=== PATIENT | female | born 1965 | race Caucasian/White ===

== ENCOUNTER 2017-12-28 12:17 | Emergency (ER) | payer MEDICARE ==
[~2017-12-28] VITALS: Ht 154.9 cm; Wt 66.0 kg
[2017-12-28] MEDS ORDERED: ZITHROMAX250 MG PO (13:07)
[2017-12-28] MEDS ORDERED: LORTAB 1010 MG PO (13:15)
[2017-12-28 13:18] VITALS: BP 138/80
== END 2017-12-28 13:26 | disposition home or self-care (01) ==
LOC: ED 12:17
DX: S61.210A Laceration without foreign body of right index finger without damage to nail, initial encounter (principal); S63.610A Unspecified sprain of right index finger, initial encounter; G91.9 Hydrocephalus, unspecified; L08.9 Local infection of the skin and subcutaneous tissue, unspecified; W23.1XXA Caught, crushed, jammed, or pinched between stationary objects, initial encounter; Y92.029 Unspecified place in mobile home as the place of occurrence of the external cause; Z98.2 Presence of cerebrospinal fluid drainage device